=== PATIENT | male | born 1950 | race Caucasian/White ===

== ENCOUNTER 2018-05-14 06:45 | Day surgery (SDC) | payer MEDICARE, OTHER ==
[~2018-05-14 06:45] MED LIST: Lactated Ringers 1,000 ML IV SCH
[2018-05-14] MEDS ORDERED: Propofol 200 MG/20 ML SDV IV ONE (06:46)
[2018-05-14] MEDS ORDERED: Simethicone Drops 40 MG/0.6 ML 30 ML Bottle ONE (07:59)
--- NOTE | 2018-05-14 08:26 | PCM.OPNOTE ---
- General Post-Op/Procedure Note Date of Surgery/Procedure: 05/14/18 Operative Procedure(s): c scope with bx Findings: cecal polyp scattered diverticulum Pre Op Diagnosis: hx of colon polyps Post-Op Diagnosis: cecal polyp. scattered diverticulum Anesthesia Technique: MAC Primary Surgeon: Wellington Ferrer Anesthesia Provider: Rafael Gibbons Pathology: cecum Complications: None Condition: Good Free Text/Narrative:: see dictation
[2018-05-14 09:23] VITALS: BP 150/66
--- NOTE | 2018-05-14 10:12 | PREOP ---
ADMISSION DATE: 05/14/2018 CHIEF COMPLAINT: History of colon polyps. HISTORY OF PRESENT ILLNESS: This 67-year-old white male due for followup colonoscopy is without complaints. Last scope found some adenomatous polyps and presents now for followup scope. SOCIAL HISTORY: The patient is . He is a former smoker as well as smokeless tobacco user. He used tobacco except for cigar twice a year, has about 3 drinks a week. PAST MEDICAL HISTORY: Significant for hypertension, hyperlipidemia. PAST SURGICAL HISTORY: Significant for repair of Achilles tendon as well as an umbilical hernia. FAMILY HISTORY: Significant for lung cancer as well as ovarian cancer. MEDICATIONS: Include: 1. Lopid 600 mg twice a day. 2. Losartan 50 mg every day. 3. Naprosyn 500 mg 1 tablet two times a day. 4. Zocor 20 mg at bedtime. 5. Aspirin 81 mg at night. ALLERGIES: He has no known drug allergies. REVIEW OF SYSTEMS: Essentially unremarkable except for HEENT reveals ear pain and tinnitus. Cardiovascular, respiratory, gastrointestinal, genitourinary were negative. Musculoskeletal was positive for back pain. PHYSICAL EXAMINATION: VITAL SIGNS: Reviewed. He is stable and afebrile. HEENT: Grossly within normal limits. GENERAL: He appears to be well developed and well nourished. LUNGS: Clear to auscultation. HEART: Regular rate and rhythm. ABDOMEN: Soft, nontender. SKIN: Warm and dry. NEUROLOGIC: He is alert. ASSESSMENT: Personal history of adenomatous colon polyps. PLAN: Colonoscopy procedure and risks explained to the patient to include bleeding, infection, and perforation. The patient expressed his understanding and asked us to proceed. /[id number] /MODL
--- NOTE | 2018-05-14 13:56 | OR ---
DATE OF OPERATION: 05/14/2018 SURGEON: Wellington Ferrer MD PROCEDURE PERFORMED: Colonoscopy, cold forceps biopsy. PREOPERATIVE DIAGNOSIS: Personal history of colon polyps. POSTOPERATIVE DIAGNOSIS: Questionable cecal polyp. INDICATIONS FOR PROCEDURE: This is a 67-year-old white male who presents for followup colonoscopy. He was offered and accepted the same. DESCRIPTION OF OPERATION: After an excellent IV sedation was administered, digital rectal exam was performed. No marked abnormality was noted. The flexible colonoscope was inserted and advanced to the cecum. The prep was excellent. The following findings were noted. Ascending colon, there was a small reddish area near the cecum that appeared to be possible early adenomatous changes. Biopsies were taken. There was also some occasional diverticula noted. Transverse colon was unremarkable. Descending colon was unremarkable. Sigmoid with occasional diverticula. Rectum and anus, unremarkable. Colon was deflated, scope was removed. The patient tolerated procedure, was taken to recovery in good condition. Results by letter. /[id number] /MODL
== END 2018-05-14 09:15 | disposition home or self-care (01) ==
LOC: FB.SDS 06:45
PROVIDERS: ATTEND Surgery
DX: Z12.11 Encounter for screening for malignant neoplasm of colon (principal); K63.5 Polyp of colon; K57.30 Diverticulosis of large intestine without perforation or abscess without bleeding; I10 Essential (primary) hypertension; E78.5 Hyperlipidemia, unspecified; Z86.010 Personal history of colon polyps; Z87.891 Personal history of nicotine dependence; Z79.82 Long term (current) use of aspirin; Z79.899 Other long term (current) drug therapy
CPT/HCPCS: 00811-QZ; 88305; A9270-GY; J2704; J7120

== ENCOUNTER 2018-05-28 19:06 | Emergency (ER) | payer MEDICARE, OTHER ==
--- NOTE | 2018-05-28 19:29 | EDM.PDOC ---
ED HPI GENERAL MEDICAL PROBLEM - General Stated Complaint: SENT FROM CLINIC Time Seen by Provider: 05/28/18 19:10 Source of Information: Reports: Patient History Limitations: Reports: No Limitations - History of Present Illness INITIAL COMMENTS - FREE TEXT/NARRATIVE: Is pleasant obesese 282 lb non smoking man who at 1800 experienced "30 seconds of heart fluttering." 2 Weeks ago had a short heart flutter/throb. The chiropractor told him that "it was cardio nerves coming from his back ." Patient 's denies stress, diaphoresis, syncope, near-syncope, chest pain, neck pain jaw pain back pain except for mid thoracic chronic pain described above, abdominal pain nausea vomiting diarrhea shortness of breath cough or dyspnea on exertion or swelling of his ankles. - Related Data Allergies Allergy/AdvReac Type Severity Reaction Status Date / Time No Known Allergies Allergy Unverified 05/28/18 20:15 Home Meds: Home Meds Gemfibrozil 600 mg PO BID 01/07/13 [History] Losartan Potassium 50 mg PO DAILY 01/07/13 [History] Aspirin [Halfprin] 81 mg PO DAILY 01/08/13 [History] Simvastatin 20 mg PO BEDTIME 05/28/18 [History] Past Medical History HEENT History: Reports: Impaired Vision Cardiovascular History: Reports: Hypertension Other Cardiovascular History: LIPIDS SERUM INCREASED - Past Surgical History GI Surgical History: Reports: Colonoscopy, Hernia Repair/Other Other Musculoskeletal Surgeries/Procedures:: ACHILLES TENDON REPAIR Social & Family History - Caffeine Use Caffeine Use: Reports: Soda ED ROS GENERAL - Review of Systems Review Of Systems: ROS reveals no pertinent complaints other than HPI. ED EXAM, GENERAL - Physical Exam Exam: See Below Free Text/Narrative:: Patient alert motley hui faced obese molars well muscled distress. Has a sinus rhythm, occasional - PVC 1 picked up on the EKG quick look no ST elevation Exam Limited By: No Limitations General Appearance: Alert, WD/WN, No Apparent Distress Eye Exam: Bilateral Eye: Normal Inspection Ears: Normal External Exam, Normal Canal, Hearing Grossly Normal, Normal TMs Ear Exam: Bilateral Ear: Auricle Normal, Canal Normal, TM normal Nose: Normal Inspection Throat/Mouth: Normal Inspection, Normal Lips, Normal Teeth, Normal Gums, Normal Oropharynx, Normal Voice Head: Atraumatic, Normocephalic Neck: Normal Inspection, Supple, Non-Tender Respiratory/Chest: No Respiratory Distress, Lungs Clear, Normal Breath Sounds, No Accessory Muscle Use, Chest Non-Tender Cardiovascular: Normal Peripheral Pulses, Regular Rate, Rhythm, No Edema, No Gallop, No JVD, No Murmur, No Rub, JVD Peripheral Pulses: 1+: Carotid (L), Carotid (R), Radial (L), Radial (R), Dorsalis Pedis (L), Dorsalis Pedis (R) GI/Abdominal: Normal Bowel Sounds, Soft, Non-Tender, No Organomegaly, No Distention, No Abnormal Bruit, No Mass, Other (Increased abdominal girth no abdominal tenderness) (Male) Exam: No Hernia, Deferred Rectal (Males) Exam: Deferred Back Exam: Normal Inspection Extremities: Normal Inspection, Normal Range of Motion, Non-Tender, No Pedal Edema, Normal Capillary Refill Neurological: Alert, Oriented, CN II-XII Intact, Normal Cognition, Normal Gait, Normal Reflexes, No Motor/Sensory Deficits Psychiatric: Normal Affect, Normal Mood EKG INTERPRETATION EKG Date: 05/28/18 Time: 15:23 Rhythm: NSR EKG Interpretation Comments: Occasional PVC, borderline MT interval 214 ms abnormal QRS complex. 3 computer read out as minimal ST depression in inferior leads but I don't see any ST depression Course - Vital Signs Last Recorded V/S: Last Vital Signs Temp Pulse 67 05/28/18 19:44 Resp BP 134/72 05/28/18 19:44 Pulse Ox - Orders/Labs/Meds Orders: Active Orders 24 hr Category Date Time Status EKG Documentation Completion [RC] ASDIRECTED Care 05/28/18 19:51 Active CXR [Chest 1V Frontal] [CR] Stat Exams 05/28/18 19:51 Taken EKG 12 Lead [EK] Routine Ther 05/28/18 19:51 Ordered Labs: Laboratory Tests 05/28/18 05/28/18 05/28/18 Range/Units 19:55 19:55 19:55 WBC 5.4 (4.5-12.0) X10-3/uL RBC 4.73 (4.30-5.75) x10(6)uL Hgb 14.2 (11.5-15.5) g/dL Hct 42.4 (30.0-51.3) % MCV 89.6 (80-96) fL MCH 30.0 (27.7-33.6) pg MCHC 33.5 (32.2-35.4) g/dL RDW 11.6 (11.5-15.5) % Plt Count 211 (125-369) X10(3)uL MPV 8.0 (7.4-10.4) fL Neut % (Auto) 51.9 (46-82) % Lymph % (Auto) 28.2 (13-37) % [place] % (Auto) 10.1 (4-12) % Eos % (Auto) 9 H (1.0-5.0) % Baso % (Auto) 1 (0-2) % Neut # (Auto) 2.9 (1.6-8.3) # Lymph # (Auto) 1.5 (0.6-5.0) # [place] # (Auto) 0.5 (0.0-1.3) # Eos # (Auto) 0.5 (0.0-0.8) # Baso # (Auto) 0.0 (0.0-0.2) # D-Dimer, Quantitative 0.27 (0.0-0.59) mg/LFEU Sodium (135-145) mmol/L Potassium (3.5-5.3) mmol/L Chloride (100-110) mmol/L Carbon Dioxide (21-32) mmol/L BUN (7-18) mg/dL Creatinine (0.70-1.30) mg/dL Est Cr Clr Drug Dosing Estimated GFR (MDRD) (>60) BUN/Creatinine Ratio (9-20) Glucose (80-116) mg/dL Calcium (8.6-10.2) mg/dL Total Bilirubin (0.1-1.3) mg/dL AST (5-25) IU/L ALT (12-36) U/L Alkaline Phosphatase (56-112) IU/L Troponin I 0.023 (<0.017-0.056) ng/mL Total Protein (6.0-8.0) g/dL Albumin (3.2-4.6) g/dL Globulin g/dL Albumin/Globulin Ratio TSH, Ultra Sensitive 2.68 (0.36-3.74) IU/mL 05/28/18 Range/Units 19:55 WBC (4.5-12.0) X10-3/uL RBC (4.30-5.75) x10(6)uL Hgb (11.5-15.5) g/dL Hct (30.0-51.3) % MCV (80-96) fL MCH (27.7-33.6) pg MCHC (32.2-35.4) g/dL RDW (11.5-15.5) % Plt Count (125-369) X10(3)uL MPV (7.4-10.4) fL Neut % (Auto) (46-82) % Lymph % (Auto) (13-37) % [place] % (Auto) (4-12) % Eos % (Auto) (1.0-5.0) % Baso % (Auto) (0-2) % Neut # (Auto) (1.6-8.3) # Lymph # (Auto) (0.6-5.0) # [place] # (Auto) (0.0-1.3) # Eos # (Auto) (0.0-0.8) # Baso # (Auto) (0.0-0.2) # D-Dimer, Quantitative (0.0-0.59) mg/LFEU Sodium 139 (135-145) mmol/L Potassium 4.2 (3.5-5.3) mmol/L Chloride 106 (100-110) mmol/L Carbon Dioxide 24 (21-32) mmol/L BUN 34 H (7-18) mg/dL Creatinine 1.2 (0.70-1.30) mg/dL Est Cr Clr Drug Dosing TNP Estimated GFR (MDRD) > 60 (>60) BUN/Creatinine Ratio 28.3 H (9-20) Glucose 110 (80-116) mg/dL Calcium 9.0 (8.6-10.2) mg/dL Total Bilirubin 0.3 (0.1-1.3) mg/dL AST 21 (5-25) IU/L ALT 32 (12-36) U/L Alkaline Phosphatase 71 (56-112) IU/L Troponin I (<0.017-0.056) ng/mL Total Protein 7.2 (6.0-8.0) g/dL Albumin 3.9 (3.2-4.6) g/dL Globulin 3.3 g/dL Albumin/Globulin Ratio 1.2 TSH, Ultra Sensitive (0.36-3.74) IU/mL Meds: Medications Discontinued Medications Generic Name Dose Route Start Last Admin Trade Name Elle PRN Reason Stop Dose Admin Metoprolol Tartrate 25 mg 05/28/18 19:34 05/28/18 19:44 Lopressor PO 05/28/18 19:35 25 mg ONETIME ONE Administration Departure - Departure Time of Disposition: 19:45 (Flutter etiology indeterminate. Occasional PVCs noted on monitor. Patient is at risk for cardiovascular disease because of his weight, hypertension, presumed dyslipidemia, he is not diabetic. He is given 25 mg metoprolol by mouth.) Disposition: Home, Self-Care 01 Condition: Good Clinical Impression: PVC (premature ventricular contraction), Morbid obesity with BMI of 50.0-59.9, adult, Cardiomegaly Arrhythmia Qualifiers: Arrhythmia type: unspecified cardiac arrhythmia Qualified Code(s): I49.9 - Cardiac arrhythmia, unspecified - Discharge Information *PRESCRIPTION DRUG MONITORING PROGRAM REVIEWED*: Not Applicable *COPY OF PRESCRIPTION DRUG MONITORING REPORT IN PATIENT BARBARA: Not Applicable Referrals: Rafael Vanessa MD [Primary Care Provider] - Forms: ED Department Discharge Care Plan Goals: There are no abnormalities of the laboratory tests Chest x-ray demonstrated an enlarged heart EKG was abnormal with occasional premature ventricular contraction. You have been started on metoprolol 25 mg twice a day. Follow-up here doctor in a week earlier if worse. - My Orders Last 24 Hours: My Active Orders 05/28/18 19:51 EKG Documentation Completion [RC] ASDIRECTED CXR [Chest 1V Frontal] [CR] Stat EKG 12 Lead [EK] Routine - Assessment/Plan Last 24 Hours: My Active Orders 05/28/18 19:51 EKG Documentation Completion [RC] ASDIRECTED CXR [Chest 1V Frontal] [CR] Stat EKG 12 Lead [EK] Routine
[2018-05-28] MEDS ORDERED: Metoprolol Tartrate 25 MG Tab PO ONE (19:34)
[2018-05-28 21:00] VITALS: BP 169/64
--- NOTE | 2018-05-29 11:23 | CR ---
INDICATION: Chest pain. CHEST: An AP portable upright view of the chest was obtained 05/28/18 and compared with 04/22/12, again revealing the heart to be mildly prominent in size , slightly enlarged or at the upper limits of normal, allowing for epicardial fat pads. Overlying EKG leads are noted. The aorta is somewhat tortuous with suggestion of minimal calcification in the arch area. An active infiltrate or effusion was not identified. A dextroconvex scoliosis of the mid thoracic spine is noted. IMPRESSION: 1. No definite acute process. 2. ASHD. 3. Scoliosis. MTDD
== END 2018-05-28 21:10 | disposition home or self-care (01) ==
LOC: FB.ED 19:06
DX: I49.3 Ventricular premature depolarization (principal); E66.01 Morbid (severe) obesity due to excess calories; I51.7 Cardiomegaly; I10 Essential (primary) hypertension; I49.9 Cardiac arrhythmia, unspecified; Z79.899 Other long term (current) drug therapy
CPT/HCPCS: 36415; 71045; 80053; 84443; 84484; 85025; 85379; 93005; 93010; 99285; A9270-GY

== ENCOUNTER 2020-04-03 02:46 | Emergency (ER) | payer OTHER, MEDICARE ==
[2020-04-03 03:04] VITALS: BP 172/86; PULSE 87
--- NOTE | 2020-04-03 08:46 | EDM.PDOC ---
ED HPI GENERAL MEDICAL PROBLEM - General Chief Complaint: Cardiovascular Problem Stated Complaint: RAPID HEART BEAT Time Seen by Provider: 04/03/20 03:00 Source of Information: Reports: Patient History Limitations: Reports: No Limitations - History of Present Illness INITIAL COMMENTS - FREE TEXT/NARRATIVE: pt comes to ER ambulatory with concerns for feeling his heart racing this morning as he was going to bathroom, pt denies any assoicated chest pain, SOB, leg pain or swelling, tells me at times he get this on and off lately, does not check his pulse and does not think it was irregular, pt denies any associated sx with the above and denies any other medical concern. pt report feeling anxious at times , and denies Hx of significant morbidities. Treatments COMPUTATIONAL PHYSICIST: Reports: Aspirin - Related Data Allergies Allergy/AdvReac Type Severity Reaction Status Date / Time No Known Allergies Allergy Verified 04/03/20 02:56 Home Meds: Home Meds Losartan Potassium 50 mg PO DAILY 01/07/13 [History] Aspirin [Halfprin] 81 mg PO DAILY 01/08/13 [History] Metoprolol Tartrate 25 mg PO BID #30 tablet 05/28/18 [Rx] Simvastatin 40 mg PO BEDTIME 05/28/18 [History] Past Medical History HEENT History: Reports: Impaired Vision Cardiovascular History: Reports: High Cholesterol, Hypertension Other Cardiovascular History: LIPIDS SERUM INCREASED Musculoskeletal History: Reports: Other (See Below) Other Musculoskeletal History: Neck pain, shoulder pain Endocrine/Metabolic History: Reports: Obesity/BMI 30+ - Past Surgical History GI Surgical History: Reports: Colonoscopy, Hernia Repair/Other Other Musculoskeletal Surgeries/Procedures:: ACHILLES TENDON REPAIR Social & Family History - Family History Family Medical History: No Pertinent Family History - Tobacco Use Tobacco Use Status *Q: Never Tobacco User - Caffeine Use Caffeine Use: Reports: Soda - Recreational Drug Use Recreational Drug Use: No ED ROS GENERAL - Review of Systems Review Of Systems: See Below Constitutional: Reports: No Symptoms HEENT: Reports: No Symptoms Respiratory: Reports: No Symptoms Cardiovascular: Reports: Palpitations Endocrine: Reports: No Symptoms GI/Abdominal: Reports: No Symptoms : Reports: No Symptoms Musculoskeletal: Reports: No Symptoms Skin: Reports: No Symptoms Neurological: Reports: No Symptoms Psychiatric: Reports: Anxiety. Denies: Depression ED EXAM, GENERAL - Physical Exam Exam: See Below Exam Limited By: No Limitations General Appearance: Alert, No Apparent Distress. No: Anxious Ears: Normal External Exam Nose: Normal Inspection Throat/Mouth: Normal Inspection, Normal Oropharynx Head: Atraumatic, Normocephalic Neck: Normal Inspection Respiratory/Chest: No Respiratory Distress, Lungs Clear, Normal Breath Sounds Cardiovascular: Normal Peripheral Pulses, Regular Rate, Rhythm GI/Abdominal: Normal Bowel Sounds, Soft, Non-Tender Back Exam: Normal Inspection Extremities: Normal Inspection, Normal Range of Motion Neurological: Alert, Oriented, CN II-XII Intact Psychiatric: Normal Affect Course - Vital Signs Text/Narrative:: EKG shows NSR, nl rate, vitals are wnl, labs unremarkable , pt is comfortable and asymptomatic here. pt has subjective sx of palpitation/ seems exertional and potentially related to underlying anxiety, he was reassured with tests results and he is medically stable to follow on this issue with PCP. Last Recorded V/S: Last Vital Signs Temp 36.4 C 04/03/20 02:50 Pulse 87 04/03/20 02:50 Resp 22 H 04/03/20 02:50 BP 172/86 H 04/03/20 02:50 Pulse Ox 97 04/03/20 02:50 - Orders/Labs/Meds Orders: Active Orders 24 hr Category Date Time Status EKG 12 Lead [EK] Routine Ther 04/03/20 02:50 Ordered Labs: Laboratory Tests 04/03/20 04/03/20 04/03/20 Range/Units 03:20 03:20 03:20 WBC 4.3 (3.2-10.1) x10-3/uL RBC 4.71 (3.90-5.90) x10(6)uL Hgb 14.2 (12.9-17.7) g/dL Hct 42.9 (38.3-50.1) % MCV 91.0 (80.8-98.7) fL MCH 30.1 (27.0-33.3) pg MCHC 33.0 (28.7-35.3) g/dL RDW 12.6 (12.4-15.0) % Plt Count 197 (117-477) x10(3)uL MPV 7.8 (6.7-11.0) fL Neut % (Auto) 55.0 (40.3-71.8) % Lymph % (Auto) 23.3 (15.8-45.3) % [place] % (Auto) 11.6 (5.5-15.2) % Eos % (Auto) 9.8 H (0.1-6.8) % Baso % (Auto) 0.3 (0.3-3.8) % Neut # (Auto) 2.4 (1.7-6.9) x10-3/uL Lymph # (Auto) 1.0 (0.5-4.5) x10-3/uL [place] # (Auto) 0.5 (0.0-1.2) x10-3/uL Eos # (Auto) 0.4 (0.0-0.6) x10-3/uL Baso # (Auto) 0.0 (0.0-0.3) x10-3/uL Sodium 140 (135-145) mmol/L Potassium 3.5 (3.5-5.3) mmol/L Chloride 104 (100-110) mmol/L Carbon Dioxide 23 (21-32) mmol/L BUN 23 H D (7-18) mg/dL Creatinine 1.3 (0.70-1.30) mg/dL Est Cr Clr Drug Dosing 56.36 mL/min Estimated GFR (MDRD) 54 L (>60) BUN/Creatinine Ratio 17.7 (9-20) Glucose 126 H (80-116) mg/dL Calcium 8.2 L (8.6-10.2) mg/dL Total Bilirubin 0.7 (0.1-1.3) mg/dL AST 28 H D (5-25) IU/L ALT 43 H D (12-36) U/L Alkaline Phosphatase 52 L (56-112) IU/L Troponin I 11.9 (4.0-60.3) pg/mL Total Protein 6.9 (6.0-8.0) g/dL Albumin 3.8 (3.2-4.6) g/dL Globulin 3.1 g/dL Albumin/Globulin Ratio 1.2 TSH, Ultra Sensitive 3.22 (0.36-3.74) IU/mL Departure - Departure Time of Disposition: 04:10 Disposition: Home, Self-Care 01 Clinical Impression: Palpitation Instructions: Palpitations, [id number], Managing Anxiety, Adult Referrals: Rafael Vanessa MD [Primary Care Provider] - Forms: ED Department Discharge Additional Instructions: Follow-up with primary care physician in 2-3 days. Please return to ER if you feel symptoms worsen. Sepsis Event Note (ED) - Evaluation Sepsis Screening Result: No Definite Risk - Focused Exam Vital Signs: Vital Signs Temp Pulse Resp BP Pulse Ox 04/03/20 02:50 36.4 C 87 22 H 172/86 H 97 - My Orders Last 24 Hours: My Active Orders 04/03/20 02:50 EKG 12 Lead [EK] Routine - Assessment/Plan Last 24 Hours: My Active Orders 04/03/20 02:50 EKG 12 Lead [EK] Routine
== END 2020-04-03 04:22 | disposition home or self-care (01) ==
LOC: FB.ED 02:46
DX: R00.2 Palpitations (principal); E78.00 Pure hypercholesterolemia, unspecified; I10 Essential (primary) hypertension; E66.9 Obesity, unspecified; Z68.41 Body mass index [BMI] 40.0-44.9, adult; Z79.82 Long term (current) use of aspirin; Z79.899 Other long term (current) drug therapy
CPT/HCPCS: 36415; 80053; 84443; 84484; 85025; 93005; 93010; 99283; 99285-25

== ENCOUNTER 2020-04-14 07:19 | Emergency (ER) | payer OTHER, MEDICARE ==
--- NOTE | 2020-04-14 07:35 | EDM.PDOC ---
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 and drove himself to the ED, "heart racing" lasted 20 min from 6:50a to 7:10a, had stopped just before arrival at ED EKG with NSR 73, no ectopy on monitor this is 3rd episode in 1.5m, had a 30 second episode 1.5m ago, then a 60 second episode 11d ago and came to ED then no other sxs with palpitations, denies n/v, no f/c/d, no sob/cough, no dizzy/lightheaded he hugo Dr Leong, [facility], last week, plan was for a 48-hr licensed clinical psychologist but there was an equipment issue and it was not done pt [facility] altho he is not sure whether it is with cardiology or not his local PCP is Dr Anand whom he has worked with for yrs, last saw 9m ago, also goes to [facility] in [place] PMH: dx htn x 15, denies HI, never had a cath or echo in past, CKD, cardiomegaly, diverticulosis MEDS: took his ASA 81 mg and losartan at 5:30a today, also on simvastatin and metoprolol pt smoked for less than 1y when younger - Related Data Allergies Allergy/AdvReac Type Severity Reaction Status Date / Time No Known Allergies Allergy Verified 04/14/20 07:36 Home Meds: Home Meds Losartan Potassium 50 mg PO DAILY 01/07/13 [History] Aspirin [Halfprin] 81 mg PO DAILY 01/08/13 [History] Simvastatin 40 mg PO BEDTIME 05/28/18 [History] Past Medical History HEENT History: Reports: Impaired Vision Cardiovascular History: Reports: Hypertension Other Cardiovascular History: LIPIDS SERUM INCREASED Musculoskeletal History: Reports: Other (See Below) Other Musculoskeletal History: Neck pain, shoulder pain Endocrine/Metabolic History: Reports: Obesity/BMI 30+ - Past Surgical History GI Surgical History: Reports: Colonoscopy, Hernia Repair/Other Other Musculoskeletal Surgeries/Procedures:: ACHILLES TENDON REPAIR Social & Family History - Family History Family Medical History: No Pertinent Family History - Caffeine Use Caffeine Use: Reports: Soda ED ROS GENERAL - Review of Systems Review Of Systems: See Below Constitutional: Reports: No Symptoms HEENT: Reports: No Symptoms Respiratory: Reports: No Symptoms Cardiovascular: Reports: Palpitations. Denies: Chest Pain Endocrine: Reports: No Symptoms GI/Abdominal: Reports: No Symptoms : Reports: No Symptoms Musculoskeletal: Reports: No Symptoms Skin: Reports: No Symptoms Neurological: Reports: No Symptoms Psychiatric: Reports: No Symptoms Hematologic/Lymphatic: Reports: No Symptoms Immunologic: Reports: No Symptoms ED EXAM, GENERAL - Physical Exam Exam: See Below Exam Limited By: No Limitations General Appearance: Alert, WD/WN, No Apparent Distress Nose: Normal Inspection Throat/Mouth: Normal Inspection, Normal Lips, Normal Voice, No Airway Compromise Head: Atraumatic, Normocephalic Neck: Normal Inspection, Supple, Non-Tender, Full Range of Motion Respiratory/Chest: No Respiratory Distress, Lungs Clear, Normal Breath Sounds, No Accessory Muscle Use, Chest Non-Tender Cardiovascular: Normal Peripheral Pulses, Regular Rate, Rhythm, No Edema, No Gallop, No Murmur, No Rub GI/Abdominal: Soft, Non-Tender, No Distention Back Exam: Normal Inspection, Full Range of Motion, NT Extremities: Normal Inspection, Normal Range of Motion, Non-Tender, No Pedal Edema Neurological: Alert, Oriented, CN II-XII Intact, Normal Cognition, Normal Gait, No Motor/Sensory Deficits Psychiatric: Normal Affect, Normal Mood Skin Exam: Warm, Dry, Intact, Normal Color, No Rash Lymphatic: No Adenopathy Course - Vital Signs Last Recorded V/S: Last Vital Signs Temp 36.7 C 04/14/20 07:19 Pulse 72 04/14/20 07:19 Resp 21 H 04/14/20 07:19 BP 116/61 04/14/20 07:19 Pulse Ox 100 04/14/20 07:19 - Orders/Labs/Meds Orders: Active Orders 24 hr Category Date Time Status EKG Documentation Completion [RC] ASDIRECTED Care 04/14/20 07:34 Active Chest 2V [CR] Stat Exams 04/14/20 08:14 Taken CORONAVIRUS COVID-19 CLAUDIO [MOLEC] Stat Lab 04/14/20 09:09 Ordered TROPONIN I [CHEM] Timed Lab 04/14/20 09:30 Ordered URINALYSIS W/MICROSCOPIC [UA W/MICROSCOPIC] [URIN] Stat Lab 04/14/20 07:33 Ordered EKG 12 Lead [EK] Routine Ther 04/14/20 07:33 Ordered Labs: Laboratory Tests 04/14/20 04/14/20 04/14/20 Range/Units 07:30 07:30 07:30 WBC 4.3 (3.2-10.1) x10-3/uL RBC 4.86 (3.90-5.90) x10(6)uL Hgb 14.5 (12.9-17.7) g/dL Hct 44.0 (38.3-50.1) % MCV 90.4 (80.8-98.7) fL MCH 29.9 (27.0-33.3) pg MCHC 33.1 (28.7-35.3) g/dL RDW 12.3 L (12.4-15.0) % Plt Count 212 (117-477) x10(3)uL MPV 8.2 (6.7-11.0) fL Neut % (Auto) 47.8 (40.3-71.8) % Lymph % (Auto) 30.4 (15.8-45.3) % Baker % (Auto) 13.8 (5.5-15.2) % Eos % (Auto) 7.5 H (0.1-6.8) % Baso % (Auto) 0.5 (0.3-3.8) % Neut # (Auto) 2.1 (1.7-6.9) x10-3/uL Lymph # (Auto) 1.3 (0.5-4.5) x10-3/uL Baker # (Auto) 0.6 (0.0-1.2) x10-3/uL Eos # (Auto) 0.3 (0.0-0.6) x10-3/uL Baso # (Auto) 0.0 (0.0-0.3) x10-3/uL D-Dimer, Quantitative 0.45 (0.0-0.59) mg/LFEU Sodium 140 (135-145) mmol/L Potassium 4.2 (3.5-5.3) mmol/L Chloride 101 (100-110) mmol/L Carbon Dioxide 25 (21-32) mmol/L BUN 25 H (7-18) mg/dL Creatinine 1.4 H (0.70-1.30) mg/dL Est Cr Clr Drug Dosing 53.12 mL/min Estimated GFR (MDRD) 50 L (>60) BUN/Creatinine Ratio 17.9 (9-20) Glucose 135 H (80-116) mg/dL Hemoglobin A1c (<5.7) % Calcium 9.2 (8.6-10.2) mg/dL Total Bilirubin 0.8 (0.1-1.3) mg/dL AST 31 H D (5-25) IU/L ALT 46 H (12-36) U/L Alkaline Phosphatase 53 L (56-112) IU/L Troponin I (4.0-60.3) pg/mL C-Reactive Protein (0.5-0.9) mg/dL NT-Pro-B Natriuret Pep (<=125) pg/mL Total Protein 7.6 (6.0-8.0) g/dL Albumin 4.7 H (3.2-4.6) g/dL Globulin 2.9 g/dL Albumin/Globulin Ratio 1.6 04/14/20 04/14/20 Range/Units 07:30 07:30 WBC (3.2-10.1) x10-3/uL RBC (3.90-5.90) x10(6)uL Hgb (12.9-17.7) g/dL Hct (38.3-50.1) % MCV (80.8-98.7) fL MCH (27.0-33.3) pg MCHC (28.7-35.3) g/dL RDW (12.4-15.0) % Plt Count (117-477) x10(3)uL MPV (6.7-11.0) fL Neut % (Auto) (40.3-71.8) % Lymph % (Auto) (15.8-45.3) % Baker % (Auto) (5.5-15.2) % Eos % (Auto) (0.1-6.8) % Baso % (Auto) (0.3-3.8) % Neut # (Auto) (1.7-6.9) x10-3/uL Lymph # (Auto) (0.5-4.5) x10-3/uL Baker # (Auto) (0.0-1.2) x10-3/uL Eos # (Auto) (0.0-0.6) x10-3/uL Baso # (Auto) (0.0-0.3) x10-3/uL D-Dimer, Quantitative (0.0-0.59) mg/LFEU Sodium (135-145) mmol/L Potassium (3.5-5.3) mmol/L Chloride (100-110) mmol/L Carbon Dioxide (21-32) mmol/L BUN (7-18) mg/dL Creatinine (0.70-1.30) mg/dL Est Cr Clr Drug Dosing mL/min Estimated GFR (MDRD) (>60) BUN/Creatinine Ratio (9-20) Glucose (80-116) mg/dL Hemoglobin A1c 5.7 (<5.7) % Calcium (8.6-10.2) mg/dL Total Bilirubin (0.1-1.3) mg/dL AST (5-25) IU/L ALT (12-36) U/L Alkaline Phosphatase (56-112) IU/L Troponin I 13.2 (4.0-60.3) pg/mL C-Reactive Protein < 0.2 L (0.5-0.9) mg/dL NT-Pro-B Natriuret Pep 49 (<=125) pg/mL Total Protein (6.0-8.0) g/dL Albumin (3.2-4.6) g/dL Globulin g/dL Albumin/Globulin Ratio Meds: Medications Discontinued Medications Generic Name Dose Route Start Last Admin Trade Name Freq PRN Reason Stop Dose Admin Sodium Chloride 1,000 mls @ 999 mls/hr 04/14/20 09:45 Normal Saline IV ASDIRECTED JONES - Re-Assessments/Exams Free Text/Narrative Re-Assessment/Exam: 04/14/20 10:20 waiting on 2nd trop COVID neg had COVID 1m ago, has afib, sees cardiology does have mild increase TP for unclear reason CxR 2v shows pre-existing emphysema, no acute findings EKG has been fax'ed to [facility] A1C 5.7, BS 135 here essentially fasting (one bite of banana earlier) 04/14/20 11:08 trop x 2 neg, COVID neg, CxR neg per radiologist d/w [facility] Dr Delgado (CV) and August (ED), Dr Delgado requested ED to ED transfer for ischemia w/u with stress-echo in ED and then d/c on Holtor if neg pt with no previous ischemia w/u pt in agreement, will send ED to ED on monitor Departure - Departure Time of Disposition: 11:10 Disposition: DC/Tfer to Other 70 Reason for Transfer *Q: Other Condition: Good Clinical Impression: Palpitations, Chronic kidney disease (CKD), Elevated liver function tests, Hyperglycemia, Hypertension, Increased BMI Sepsis Event Note (ED) - Focused Exam Vital Signs: Vital Signs Temp Pulse Resp BP Pulse Ox 04/14/20 07:19 36.7 C 72 21 H 116/61 100 - My Orders Last 24 Hours: My Active Orders 04/14/20 07:33 URINALYSIS W/MICROSCOPIC [UA W/MICROSCOPIC] [URIN] Stat EKG 12 Lead [EK] Routine 04/14/20 07:34 EKG Documentation Completion [RC] ASDIRECTED 04/14/20 08:14 Chest 2V [CR] Stat 04/14/20 09:09 CORONAVIRUS COVID-19 CLAUDIO [MOLEC] Stat 04/14/20 09:30 TROPONIN I [CHEM] Timed - Assessment/Plan Last 24 Hours: My Active Orders 04/14/20 07:33 URINALYSIS W/MICROSCOPIC [UA W/MICROSCOPIC] [URIN] Stat EKG 12 Lead [EK] Routine 04/14/20 07:34 EKG Documentation Completion [RC] ASDIRECTED 04/14/20 08:14 Chest 2V [CR] Stat 04/14/20 09:09 CORONAVIRUS COVID-19 CLAUDIO [MOLEC] Stat 04/14/20 09:30 TROPONIN I [CHEM] Timed
[2020-04-14 08:43] LABS: HEMOGLOBIN A1C 5.7 % (<5.7)
[2020-04-14] MEDS ORDERED: Sodium Chloride 0.9% 1,000 ML IV SCH (09:45)
[2020-04-14 14:12] VITALS: BP 124/68; PULSE 61
== END 2020-04-14 12:45 | disposition other institution (70) ==
LOC: FB.ED 07:19
DX: R00.2 Palpitations (principal); I12.9 Hypertensive chronic kidney disease with stage 1 through stage 4 chronic kidney disease, or unspecified chronic kidney disease; N18.9 Chronic kidney disease, unspecified; R73.9 Hyperglycemia, unspecified; E66.9 Obesity, unspecified; Z68.38 Body mass index [BMI] 38.0-38.9, adult; Z79.82 Long term (current) use of aspirin; Z79.899 Other long term (current) drug therapy; Z20.828 Contact with and (suspected) exposure to other viral communicable diseases
CPT/HCPCS: 36415; 71046; 80053; 81001; 83036; 83880; 84484; 85025; 85379; 86140; 93005; 99285-25; U0002

== ENCOUNTER 2025-03-17 21:06 | Emergency (ER) | payer OTHER, MEDICARE ==
[2025-03-17 21:20] VITALS: BP 168/64; PULSE 65
== END 2025-03-17 22:01 | disposition home or self-care (01) ==
LOC: FB.ED 21:06
DX: J32.1 Chronic frontal sinusitis (principal); I10 Essential (primary) hypertension; E66.9 Obesity, unspecified; Z79.82 Long term (current) use of aspirin; Z79.899 Other long term (current) drug therapy; Z68.41 Body mass index [BMI] 40.0-44.9, adult
CPT/HCPCS: 99283